=== PATIENT | female | born 1960 | race Caucasian/White ===

== ENCOUNTER 2023-03-27 09:07 | Outpatient (AMB) | payer OTHER, SELFPAY ==
--- NOTE | 2023-03-27 09:05 | AM.OFFWIN_ITS ---
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 She denies current runny nose, sore throat, cough, nausea vomiting or diarrhea, chest pain or shortness of breath, headache or dizziness, discharge from the ears, decreased hearing, or other significant associated symptoms. She did not test for COVID yet [facility] Social History Patient Tobacco Use Status: Current everyday Tobacco user (E CIGARETTE) Review of Systems Const All systems reviewed & are unremarkable except as noted in HPI and below Physical Exam Vital Signs: Last Vital Signs Temp 97.8 F 03/27/23 09:10 Pulse 61 03/27/23 09:10 BP 150/80 H 03/27/23 09:10 Pulse Ox 98 03/27/23 09:10 Const General: cooperative, healthy appearing, comfortable, no acute distress, alert, awake, Physically active and well groomed; No anxious, diaphoretic, ill appearing, intoxicated appearing, poor hygiene or tired appearing Nutritional Appearance: average body habitus Orientation/consciousness: oriented to person Limitations: no limitations HEENT Head: Yes normal to inspection, Yes normocephalic and Yes atraumatic Ears: hearing grossly normal bilaterally, external ears normal, EAC's normal and TM abnormal bulging, dull, wth effusion, erythematous and with fluid behind the TM; not perforated General nose exam: Normal external nose present, Normal nares present, No nasal polyps present, Normal nasal mucous membranes and turbinates present, Normal septum present and No nasal discharge present Face and sinus: Yes normal facial exam, Yes sinuses nontender and Yes face symmetric Mouth: Normal oral and palatal mucosa present, lip normal and tongue normal Throat: Yes posterior oropharynx normal, No peritonsillar mass, No postnasal drainage, No uvular edema and No cobblestoning Eyes General: appearance normal, both eyes and all related structures Neck Neck: Yes normal visual inspection and Yes lymphadenopathy (Mild submandibular lymphadenopathy) Resp Effort & Inspection: normal respiratory effort Cardio Rate: regular rate Rhythm: regular rhythm Skin Other: Good color, warm and dry Neuro General: oriented to person Psych Appearance: grossly normal Mental Status: mental status grossly normal Speech and movement: Normal speech and movement present Affect: normal affect Attitude: cooperative Thought process: Normal thought process present Insight: Good insight present (Psych) Judgement: Good judgement present (Psych) Assessment & Plan Assessment & Plan (1) Otitis media: Code(s): H66.90 - Otitis media, unspecified, unspecified ear Qualifiers: Chronicity: acute Laterality: bilateral Plan: Patient looks to have bilateral otitis media, with erythema and injection to the TMs. We discussed how she likely had fluid in the ears for some time, and she can consider fluticasone to help with the drainage, possibly due to eustachian tube dysfunction. I also wrote her for a course of Augmentin. Pending rapid COVID testing results. She can follow up if symptoms persist or worsen Orders: Orders BinaxMOSHEW Covid-19 03/27/23 Z20.822 - Contact with and (suspected) exposure to COVID-19 Medications: New fluticasone propionate 50 mcg/actuation administer into each nostril 1 spray intranasal DAILY 16 grams 0RF amoxicillin-pot clavulanate 875-125 mg 1 tab PO BID 14 tabs 0RF 7 days Coding Level of Care Code Est Pt Level 4 (77684) Diagnoses Otitis media H66.90 Chronicity: acute Laterality: bilateral
[2023-03-27 09:10] VITALS: BP 150/80; PULSE 61; TEMP 36.6; O2SAT 98
== END 2023-03-27 10:03 | disposition home or self-care (01) ==
PROVIDERS: Visit Provider Physician Assistant Medical
DX: H66.90 Otitis media, unspecified, unspecified ear (principal)
CPT/HCPCS: 99051; 99214

== ENCOUNTER 2023-03-27 09:39 | Outpatient (REF) | payer OTHER, SELFPAY ==
[2023-03-27 10:10] LABS: Binax Internal Control QC Valid; Binax Now Covid-19 Ag Negative (Negative); Binax Performed by: HO.BONILM
== END 2023-03-27 09:40 | disposition home or self-care (01) ==
LOC: HO.HMGCLDS 09:39
PROVIDERS: PCP Internal Medicine; Visit Provider Physician Assistant Medical
DX: Z20.822 Contact with and (suspected) exposure to COVID-19 (principal)
CPT/HCPCS: 87811; C9803

== ENCOUNTER 2024-09-02 12:07 | Outpatient (REF) | payer OTHER, SELFPAY ==
[2024-09-02 14:00] LABS: Anion Gap 8 (12-20); Carbon Dioxide 28 mmol/L (22-29); Chloride 103 mmol/L (96-108); Potassium 3.4 mmol/L (3.3-5.1); Sodium 136 mmol/L (135-145)
== END 2024-09-02 12:08 | disposition home or self-care (01) ==
LOC: HO.HMGCLDS 12:07
PROVIDERS: PCP Internal Medicine; Visit Provider Internal Medicine
DX: E87.1 Hypo-osmolality and hyponatremia (principal)
CPT/HCPCS: 36415; 80051

== ENCOUNTER 2025-03-02 11:30 | Outpatient (AMB) | payer OTHER, SELFPAY ==
--- NOTE | 2025-03-02 11:34 | MHC.PC.OV ---
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 Accompanied by: Self / Same As Patient Allergies Sulfa (Sulfonamide Antibiotics) Allergy (Mild, Verified 03/02/25 11:54) Rash Medication List - Last Reconciled 03/02/25 by Blanca Antoine PA-C atenolol 100 mg PO DAILY irbesartan-hydrochlorothiazide 300-12.5 mg 1 tab PO DAILY loratadine (Allergy Relief (loratadine)) 10 mg PO DAILY Tobacco use date assessed: 03/02/25 Fall risk assessment: No Falls in past year Last assessed Fall Risk: 03/02/25 Dental Screening Dental Screen Date: 03/02/25 Did you have a dental visit in the last 12 months?: No Did you have a dental problem in the last 6 months where you did not have access to dental care?: No Was dental information given to patient?: Patient has dentist HPI Establish care; hypertension HPI Details The patient is a 64-year-old female presenting for a new patient appointment and management of hypertension. The patient reports a history of elevated blood pressure readings, particularly during medical appointments, which she attributes to anxiety, commonly referred to as white coat syndrome. She has been on atenolol 100 mg and hydrochlorothiazide 12.5 mg daily, which she took on the day of the visit. Previous attempts to manage her hypertension included adjustments to her medication regimen, which involved removing the diuretic component, but this did not yield satisfactory results. The patient has not completed recommended preventative screenings, including a colon cancer screening with a stool test and a mammogram. She has not undergone a bone density scan, which is typically recommended starting at age 65. Social History - Employment: Works remotely, which impacts her ability to complete certain health screenings. [facility] Medical History Colon cancer screening Encounter for preventive care Dual energy x-ray photon absorptiometry (DEXA) scan declined (~03/02/25) Screening mammography declined (~03/02/25) Allergies Hypertension Class 1 obesity with body mass index (BMI) of 32.0 to 32.9 in adult Establishing care with new doctor, encounter for Family History Father No problems noted. Mother No problems noted. Social History Housing: House Alcohol intake: current Alcohol intake frequency: does not drink Patient Tobacco Use Status: Former Tobacco user (E CIGARETTE) e-Cigarette/Vaping Use: Former Use service: No Current occupational status: employed Cognitive needs: No Hearing needs: No Vision needs: Yes (rx glasses) Questionnaire PHQ-9 Over the last 2 weeks, how often have you been bothered by any of the following problems? 1. Little interest or pleasure in doing things: not at all 2. Feeling down, depressed, or hopeless: not at all 3. Trouble falling or staying asleep, or sleeping too much: not at all 4. Feeling tired or having little energy: not at all 5. Poor appetite or overeating: not at all 6. Feeling bad about yourself - or that you are a failure or have let yourself or your family down: not at all 7. Trouble concentrating on things, such as reading the newspaper or watching television: not at all 8. Moving or speaking so slowly that other people could have noticed. Or the opposite - being so fidgety or restless that you have been moving around a lot more than usual: not at all 9. Thoughts that you would be better off or of hurting yourself in some way: not at all Total score: 0 Depression Screening Interpretation: Negative Depression Screening Done: Yes 96698 - PHQ-9 Billing: Yes Source: Developed by Drs. Gurpreet Mcfarland, Sol Gomez, Ervin Gonzalez and colleagues, with an educational naz from [employer]. Thrive Questionnaire Date Thrive assessed: 03/02/25 I am a: Patient What is your living situation today?: I have a steady place to live Within the past 12 months, did the food you bought not last and you didn't have the money to get more?: Never true Within the past 12 months, did you worry whether your food would run out before you got money to buy more?: Never true Do you have trouble paying for medicines?: No Do you have trouble getting transportation to medical appointments?: No Do you have trouble paying your heating and electricity bill?: No Do you have trouble taking care of your child, family member or friend?: No Do you have trouble with day-to-day activities such as bathing, preparing meals, shopping, managing finances, etc.?: No Are you currently unemployed and looking for a job?: No Are you interested in more education?: No Please select the resources that you would like help with: None Currently or been in a relationship where the following occur: No concerns reported THRIVE Score: 0 AUDIT C Alcohol Use Questionnaire (AUDIT-C) 1. How often do you have a drink containing alcohol?: Never 3. How often do you have six or more drinks on one occasion?: Never Total Score: 0 Score Reviewed/Action Taken: No ARTURO-7 AMB Questionnaire ARTURO-7 Date ARTURO - 7 assessed: 03/02/25 Feeling nervous, anxious, or on edge: 0 = Not at all Not being able to stop or control worryin = Not at all Worrying too much about different things: 0 = Not at all Trouble relaxin = Not at all Being so restless that it is hard to sit still: 0 = Not at all Becoming easily annoyed or irritable: 0 = Not at all Feeling afraid as if something awful might happen: 0 = Not at all Total ARTURO-7 score (0-4 normal; 5-9 mild; 10-14 moderate; 15-21 severe): 0 Source: Developed by Drs. Gurpreet Mcfarland, Sol Gomez, Ervin Gonzalez and colleagues, with an educational naz from [employer]. ARTURO-7 Assessment Billing ARTURO-7 Assessment Tool: ARTURO-7 Assessment 19080 Review of Systems Const Details: - Cardiovascular: Reports elevated blood pressure readings during medical appointments. Denies chest pain or palpitations. - Gastrointestinal: Denies abdominal pain or changes in bowel habits. - Musculoskeletal: Denies leg swelling or pain. All systems reviewed & are unremarkable except as noted in HPI and below Physical exam (Primary Care) Vital Signs: Last Vital Signs Temp 98.1 F 03/02/25 11:42 Pulse 57 03/02/25 11:42 Resp 16 03/02/25 11:42 BP 178/82 H 03/02/25 11:42 Pulse Ox 98 03/02/25 11:42 Oxygen Delivery Method Room Air 03/02/25 11:42 Care Plan Goal for BP management: <140/90 patient to keep blood pressure log at home and return in 2 weeks with blood pressure machine and blood pressure log BMI result Body Mass Index 32.2 BMI Assessment/Plan discussion: High BMI High, discussed plan: lifestyle, weight reduction, dietary, physical activity and alcohol moderation Tobacco/Smoking Status: Tobacco use Status Tobacco use date assessed 03/02/25 03/02/25 11:41 Patient Tobacco Use Status Current everyday Tobacco (E 03/02/25 11:41 CIGARETTE) PHQ-9: PHQ-9 Score PHQ-9: Total score 0 03/02/25 11:41 Depression Screening Interpretation: Negative Thrive Assessment: Date of Thrive Assessment Date Thrive assessed 03/02/25 03/02/25 11:41 Currently or been in a relationship where the following occur: No concerns reported Const Other: Appearance: Anxious, very anxious. Oriented X3. No acute distress. Head: Normal external exam. Normocephalic. Atraumatic. Eyes: Pupils are equal, round, and reactive to light. Extraocular movements intact. Conjunctiva and sclera normal. Eyelids normal. Ears: External auditory canal normal. Tympanic membranes normal. A little bit of wax noted, but no fluid. Throat: Pharynx normal. Uvula midline. Moist mucous membranes. Neck: Normal inspection. Neck supple. Full range of motion. Cardiovascular: Normal heart rate and rhythm. Heart sound normal. No murmurs noted. Pulses normal throughout. Respiratory: No respiratory distress. Painless inspiration. Breath sounds normal. No wheezes/rales/rhonchi noted. Chest nontender. No accessory muscle usage noted or decreased air movement noted. Abdomen: Soft and nontender. No distention noted. No organomegaly noted. Back: No costovertebral angle tenderness. Full range of motion noted. Skin: Skin warm and dry. Normal skin color. Normal skin turgor. No rashes/lesions/lacerations noted. Extremities: No lower extremity edema. Extremities exhibit normal range of motion. Extremities nontender. Neuro: Oriented X 3. No motor deficit. No sensory deficit. Reflexes normal. Results Reviewed Results Reviewed: - Labs: Previous blood work in August showed normal kidney function, sodium, and potassium levels. Coding Level of Care Code New Pt Level 5 (07267) Complex EM visit Add On G2211 Diagnoses Establishing care with new doctor, encounter for Z76.89 Class 1 obesity with body mass index (BMI) of 32.0 to 32.9 in adult E66.811; Z68.32 Hypertension I10 Allergies T78.40XA Screening mammography declined Z53.20 Encounter for preventive care Z00.00 Colon cancer screening Z12.11 Additional Codes PHQ-9 - 86362 - PHQ-9 Billing: Yes ([id number]) ARTURO-7 Assessment Billing - ARTURO-7 Assessment Tool: ARTURO-7 Assessment 74222 ([id number]) Assessment & Plan Assessment & Plan (1) Establishing care with new doctor, encounter for: Code(s): Z76.89 - Persons encountering health services in other specified circumstances Category: Medical (2) Class 1 obesity with body mass index (BMI) of 32.0 to 32.9 in adult: Code(s): E66.811 - Obesity, class 1; Z68.32 - Body mass index [BMI] 32.0-32.9, adult Category: Medical Plan: Patient to improve diet and exercise regimen. Condition is chronic and stable will continue to monitor. (3) Hypertension: Code(s): I10 - Essential (primary) hypertension Category: Medical Plan: The patient will monitor her blood pressure at home for two weeks, recording daily readings to assess the need for medication adjustments. She is advised to bring her blood pressure machine to the next appointment to ensure its accuracy. Lifestyle modifications, including stress reduction techniques, are recommended to help manage her blood pressure. (4) Allergies: Code(s): T78.40XA - Allergy, unspecified, initial encounter Category: Medical Plan: Patient to continue loratadine. Condition is chronic and stable continue to monitor. (5) Screening mammography declined: Onset Date: ~03/02/25 Code(s): Z53.20 - Procedure and treatment not carried out because of patient's decision for unspecified reasons Category: Medical Plan: Patient educated on mammogram screening for breast cancer although patient declined at this time. (6) Encounter for preventive care: Code(s): Z00.00 - Encounter for general adult medical examination without abnormal findings Category: Medical Plan: The patient is advised to complete a colon cancer screening with a stool test and a mammogram. A bone density scan is recommended, given her age, to assess for osteoporosis risk. Although patient declined mammogram and bone density test. (7) Colon cancer screening: Code(s): Z12.11 - Encounter for screening for malignant neoplasm of colon Category: Medical Plan: Cologuard ordered at this time. Plan Plan Patient was informed and verbally consented to the use of an ambient scribe for clinic note documentation during this visit. 1. Essential Hypertension The patient will monitor her blood pressure at home for two weeks, recording daily readings to assess the need for medication adjustments. She is advised to bring her blood pressure machine to the next appointment to ensure its accuracy. Lifestyle modifications, including stress reduction techniques, are recommended to help manage her blood pressure. 2. Preventative Care The patient is advised to complete a colon cancer screening with a stool test and a mammogram. A bone density scan is recommended, given her age, to assess for osteoporosis risk. I discussed with the patient the importance of monitoring her blood pressure at home to determine if her current medication regimen is effective. We talked about the potential need for medication adjustments based on her home readings. I also emphasized the importance of completing her preventative screenings, including a colon cancer screening and a mammogram, to ensure early detection of any potential issues. We discussed the option of a bone density scan to assess her risk for osteoporosis, given her age. I encouraged her to engage in stress-reducing activities to help manage her blood pressure. Orders: Orders Lipid Panel Today Z00.00 - Encounter for general adult medical examination without abnormal findings Liver Panel Today Z00.00 - Encounter for general adult medical examination without abnormal findings TSH reflex Free T4 Today Z00.00 - Encounter for general adult medical examination without abnormal findings Vitamin D 25-OH Total Today Z00.00 - Encounter for general adult medical examination without abnormal findings C Reactive Protein Today Z00.00 - Encounter for general adult medical examination without abnormal findings Complete Blood Count Auto Diff Today Z00.00 - Encounter for general adult medical examination without abnormal findings Comprehensive [place]. Panel Fast Today Z00.00 - Encounter for general adult medical examination without abnormal findings Hemoglobin A1c Today Z00.00 - Encounter for general adult medical examination without abnormal findings Magnesium Today Z00.00 - Encounter for general adult medical examination without abnormal findings Vitamin B12 and Folate Today Z00.00 - Encounter for general adult medical examination without abnormal findings Referrals Cologuard Test Z12.11 - Encounter for screening for malignant neoplasm of colon Patient Instructions: - Monitor your blood pressure at home daily for two weeks and record the readings. - Bring your blood pressure machine to your next appointment. - Complete the colon cancer screening with the stool test and schedule a mammogram. - Consider scheduling a bone density scan to assess for osteoporosis risk. - Engage in stress-reducing activities to help manage your blood pressure.
[2025-03-02 11:42] VITALS: BP 178/82; PULSE 57; RESP 16; TEMP 36.7; O2SAT 98; BMI 32.2
--- OUTSIDE RECORDS SUMMARY | 2025-03-02 11:54 | XMS_ITS | Clinical Summary ---
Author Organization [facility] ity Address [address] [place] [address] Care Team Providers Care Manager Architecture Name Role Phone Unavailable Primary Care Provider Unavailabl e Social History Tobacco Use Types Packs/Day Years Used Date Smoking Tobacco: Never Assessed Comments Unknown Sex and Gender Information Value Date Recorded Sex Assigned at Not on file Legal Sex Female 10:17 AM EST Gender Identity Not on file Sexual Orientation Not on file Plan of Treatment Health Maintenance Due Date Last Done Comments Breast Cancer Screening 1960 DTaP,Tdap,and Td Vaccines (1 - Tdap) 11/16/1979 Cervical Cancer Screening: P ap Smear 1981 Pneumococcal Vaccine: 50+ Ye ars (1 of 1 - PCV) 2010 Zoster Vaccines (1 of 2) 2010 COVID-19 Vaccine ( - 2023-2 5 season) 2024 Influenza Vaccine (#1) 2025 RSV Immunization Adult Patie nts (1 - 1-dose 75+ series) 11/16/2035 HIB Vaccines Aged Out No longer eligi ble based on patient's age to complete this topic HPV Vaccines Aged Out No longer eligi ble based on patient's age to complete this topic Hepatitis A Vaccines Aged Out No long er eligible based on patient's age to complete this topic Hepatitis B Vaccines Aged Out No long er eligible based on patient's age to complete this topic IPV Vaccines Aged Out No longer eligi ble based on patient's age to complete this topic MMR Vaccines Aged Out No longer eligi ble based on patient's age to complete this topic Meningococcal ACWY Vaccine Aged Out N o longer eligible based on patient's age to complete this topic Meningococcal B Vaccine Aged Out No l onger eligible based on patient's age to complete this topic RSV Immunization Patients Un magui 20 months Aged Out No longer eligible b ased on patient's age to complete this topic Varicella Vaccines Aged Out No longer eligible based on patient's age to complete this topic
[2025-03-02 12:19] VITALS: BP 166/80
== END 2025-03-02 12:21 | disposition home or self-care (01) ==
LOC: HO.HMCSH 11:30
PROVIDERS: PCP Internal Medicine; Visit Provider Physician Assistant Medical
DX: Z00.00 Encounter for general adult medical examination without abnormal findings (principal); E66.811 Obesity, class 1; Z68.32 Body mass index [BMI] 32.0-32.9, adult; I10 Essential (primary) hypertension; T78.40XA Allergy, unspecified, initial encounter; Z53.20 Procedure and treatment not carried out because of patient's decision for unspecified reasons; Z12.11 Encounter for screening for malignant neoplasm of colon

== ENCOUNTER → 2025-03-02 11:30 | Outpatient (BNVA) | payer OTHER, SELFPAY | PROVIDERS: PCP Internal Medicine; Visit Provider Physician Assistant Medical | DX: Z76.89 Persons encountering health services in other specified circumstances (principal); E66.811 Obesity, class 1; Z68.32 Body mass index [BMI] 32.0-32.9, adult; I10 Essential (primary) hypertension; T78.40XA Allergy, unspecified, initial encounter; Z13.31 Encounter for screening for depression; Z13.39 Encounter for screening examination for other mental health and behavioral disorders | CPT/HCPCS: 96127 ==

== ENCOUNTER 2025-03-15 11:32 | Outpatient (AMB) | payer OTHER, SELFPAY ==
[2025-03-15 11:30] VITALS: BP 137/91; PULSE 62; RESP 14; TEMP 36.9; O2SAT 96; BMI 32.6
--- NOTE | 2025-03-15 11:30 | A.OFFPC_ITS ---
Vital Signs 03/15/25 11:30 Height 5 ft 1.3 in Weight 174 lb BMI 32.6 BP 137/91 H Respiration 14 Pulse 62 Pulse Source Pulse Oximeter Temp 98.4 F Temp Source Temporal Artery Scan Pulse Oximetry (%) 96 Oxygen Delivery Method Room Air Intake Visit Reasons: 2 week f/u Waiter Waitress Required: No Accompanied by: Self / Same As Patient Allergies Sulfa (Sulfonamide Antibiotics) Allergy (Mild, Verified 03/15/25 14:18) Rash Medication List - Last Reconciled 03/15/25 by Blanca Antoine PA-C atenolol 100 mg PO DAILY hydrochlorothiazide 12.5 mg PO DAILY irbesartan-hydrochlorothiazide 300-12.5 mg 1 tab PO DAILY loratadine (Allergy Relief (loratadine)) 10 mg PO DAILY Tobacco use date assessed: 03/15/25 Dental Screening Dental Screen Date: 03/02/25 HPI 2 week f/u HPI Details The patient is a 64-year-old female presenting for a blood pressure follow-up. She has been on atenolol, irbesartan, and hydrochlorothiazide for hypertension management. Her blood pressure readings have been variable, with higher readings noted during work-related stress and lower readings during weekends. The patient reports a history of medication-induced edema, previously experienced with amlodipine, leading to its discontinuation. She has been advised to monitor her sodium intake and has experienced elevated sodium levels in the past, particularly during the summer months. Social History - Employment: Patient experiences work-r elated stress impacting blood pressure readings. [facility] Medical History General medical exam Cervical lymphadenopathy Chronic sinusitis Thyroid nodule History of obstetric problem Colon cancer screening Encounter for preventive care Dual energy x-ray photon absorptiometry (DEXA) scan declined (~03/02/25) Screening mammography declined (~03/02/25) Allergies Hypertension Class 1 obesity with body mass index (BMI) of 32.0 to 32.9 in adult Establishing care with new doctor, encounter for Surgical History H/O tubal ligation S/P thyroid biopsy Family History Father No problems noted. Mother No problems noted. Social History Housing: House Alcohol intake: current Alcohol intake frequency: does not drink Patient Tobacco Use Status: Former Tobacco user e-Cigarette/Vaping Use: Former Use service: No Current occupational status: employed Cognitive needs: No Hearing needs: No Vision needs: Yes (rx glasses) Questionnaire PHQ-9 Over the last 2 weeks, how often have you been bothered by any of the following problems? 1. Little interest or pleasure in doing things: not at all 2. Feeling down, depressed, or hopeless: not at all 3. Trouble falling or staying asleep, or sleeping too much: not at all 4. Feeling tired or having little energy: not at all 5. Poor appetite or overeating: not at all 6. Feeling bad about yourself - or that you are a failure or have let yourself or your family down: not at all 7. Trouble concentrating on things, such as reading the newspaper or watching television: not at all 8. Moving or speaking so slowly that other people could have noticed. Or the opposite - being so fidgety or restless that you have been moving around a lot more than usual: not at all 9. Thoughts that you would be better off or of hurting yourself in some way: not at all Total score: 0 Depression Screening Interpretation: Negative Depression Screening Done: Yes 00404 - PHQ-9 Billing: Yes Source: Developed by Drs. Gurpreet Mcfarland, Sol Gomez, Ervin Gonzalez and colleagues, with an educational naz from [employer]. Thrive Questionnaire Date Thrive assessed: 03/02/25 I am a: Patient What is your living situation today?: I have a steady place to live Within the past 12 months, did the food you bought not last and you didn't have the money to get more?: Never true Within the past 12 months, did you worry whether your food would run out before you got money to buy more?: Never true Do you have trouble paying for medicines?: No Do you have trouble getting transportation to medical appointments?: No Do you have trouble paying your heating and electricity bill?: No Do you have trouble taking care of your child, family member or friend?: No Do you have trouble with day-to-day activities such as bathing, preparing meals, shopping, managing finances, etc.?: No Are you currently unemployed and looking for a job?: No Are you interested in more education?: No Please select the resources that you would like help with: None Currently or been in a relationship where the following occur: No concerns reported THRIVE Score: 0 AUDIT C Alcohol Use Questionnaire (AUDIT-C) 1. How often do you have a drink containing alcohol?: Never 3. How often do you have six or more drinks on one occasion?: Never Total Score: 0 Score Reviewed/Action Taken: No ARTURO-7 AMB Questionnaire ARTURO-7 Date ARTURO - 7 assessed: 03/02/25 Feeling nervous, anxious, or on edge: 0 = Not at all Not being able to stop or control worryin = Not at all Worrying too much about different things: 0 = Not at all Trouble relaxin = Not at all Being so restless that it is hard to sit still: 0 = Not at all Becoming easily annoyed or irritable: 0 = Not at all Feeling afraid as if something awful might happen: 0 = Not at all Total ARTURO-7 score (0-4 normal; 5-9 mild; 10-14 moderate; 15-21 severe): 0 Source: Developed by Drs. Gurpreet Mcfarland, Sol Gomez, Ervin Gonzalez and colleagues, with an educational naz from [employer]. ARTURO-7 Assessment Billing ARTURO-7 Assessment Tool: ARTURO-7 Assessment 60646 Review of Systems Const Details: - Cardiovascular: Reports elevated blood pressure readings, especially during work. Denies chest pain or palpitations. - General: Reports medication-induced edema in the past with amlodipine. All systems reviewed & are unremarkable except as noted in HPI and below Physical exam (Primary Care) Vital Signs: Last Vital Signs Temp 98.4 F 03/15/25 11:30 Pulse 62 03/15/25 11:30 Resp 14 03/15/25 11:30 BP 137/91 H 03/15/25 11:30 Pulse Ox 96 03/15/25 11:30 Oxygen Delivery Method Room Air 03/15/25 11:30 Care Plan Goal for BP management: <140/90 will add an additional 12.5 mg hydrochlorothiazide to the patient's irbesartan-hydrochlorothiazide 300-12.5 mg and atenolol 100 mg daily. Patient will return in a month for blood pressure check BMI result Body Mass Index 32.6 BMI Assessment/Plan discussion: High BMI High, discussed plan: lifestyle, weight reduction, dietary, physical activity and alcohol moderation Tobacco/Smoking Status: Tobacco use Status Tobacco use date assessed 03/15/25 03/15/25 11:42 Patient Tobacco Use Status Former Tobacco user (E 03/15/25 11:42 CIGARETTE) e-Cigarette/Vaping Use Former Use 03/15/25 11:42 PHQ-9: PHQ-9 Score PHQ-9: Total score 0 03/15/25 11:42 Depression Screening Interpretation: Negative Thrive Assessment: Date of Thrive Assessment Date Thrive assessed 03/02/25 03/15/25 11:42 Currently or been in a relationship where the following occur: No concerns reported Const Other: Appearance: Alert. Oriented X3. No acute distress. Head: Normal external exam. Normocephalic. Atraumatic. Eyes: Pupils are equal, round, and reactive to light. Extraocular movements intact. Conjunctiva and sclera normal. Eyelids normal. Throat: Pharynx normal. Uvula midline. Moist mucous membranes. Neck: Normal inspection. Neck supple. Full range of motion. Cardiovascular: Normal heart rate and rhythm. Heart sound normal. No murmurs noted. Pulses normal throughout. Respiratory: No respiratory distress. Painless inspiration. Breath sounds normal. No wheezes/rales/rhonchi noted. Chest nontender. No accessory muscle usage noted or decreased air movement noted. Back: Full range of motion noted. Skin: Skin warm and dry. Normal skin color. Normal skin turgor. No rashes/lesions/lacerations noted. Extremities: No lower extremity edema. Extremities exhibit normal range of motion. Neuro: Oriented X 3. No motor deficit. No sensory deficit. Reflexes normal. Coding Level of Care Code Est Pt Level 4 (64393) Complex EM visit Add On G2211 Diagnoses Hypertension I10 Additional Codes ARTURO-7 Assessment Billing - ARTURO-7 Assessment Tool: ARTURO-7 Assessment 20857 ([id number]) PHQ-9 - 30217 - PHQ-9 Billing: Yes ([id number]) Assessment & Plan Assessment & Plan (1) Hypertension: Code(s): I10 - Essential (primary) hypertension Category: Medical Plan: The patient's blood pressure management includes atenolol, irbesartan, and hydrochlorothiazide. Blood pressure readings have been variable, with higher readings during work-related stress. The plan includes the current combination medication to allow for an increased dose of hydrochlorothiazide to 25 mg, with follow-up blood work to monitor sodium and potassium levels. Plan Plan Patient was informed and verbally consented to the use of an ambient scribe for clinic note documentation during this visit. 1. Essential Hypertension The patient's blood pressure management includes atenolol, irbesartan, and hydrochlorothiazide. Blood pressure readings have been variable, with higher readings during work-related stress. The plan includes the current combination medication to allow for an increased dose of hydrochlorothiazide to 25 mg, with follow-up blood work to monitor sodium and potassium levels. 2. Medication-Induced Edema The patient previously experienced edema with amlodipine, leading to its discontinuation. The plan is to avoid amlodipine and monitor for edema with any new medications. During the visit, we discussed the patient's blood pressure management, including the variability in readings and the potential impact of work-related stress. We considered increasing the dose of hydrochlorothiazide to better control blood pressure and planned for follow-up blood work to monitor electrolyte levels. We also reviewed the patient's history of edema with amlodipine and decided to avoid this medication in the future. Orders: Orders Basic Metabolic Panel 1 Week Z00.00 - Encounter for general adult medical exami [facility] without abnormal findings Medications: New hydrochlorothiazide 12.5 mg PO DAILY 90 tabs 3RF hydrochlorothiazide 12.5 mg PO DAILY 90 tabs 3RF Refilled irbesartan-hydrochlorothiazide 300-12.5 mg 1 tab PO DAILY 90 tabs 1RF Discontinued irbesartan-hydrochlorothiazide 300-12.5 mg Discontinued Reason: Doctor's Order 1 tab PO DAILY 90 tabs 1RF Patient Instructions: - Continue current medications: atenolol, irbesartan, and hydrochlorothiazide. - Monitor blood pressure at home, especially during work and weekends. - Follow a balanced diet, being mindful of sodium intake. - Schedule follow-up blood work in one to two weeks to check sodium and potassium levels. - Avoid amlodipine due to previous edema.
--- OUTSIDE RECORDS SUMMARY | 2025-03-15 12:16 | XMS_ITS | Clinical Summary ---
Author Organization [facility] ity Address [address] [place] [address] Care Team Providers Care Battery Tester And Repairer Name Role Phone Unavailable Primary Care Provider [...] Vaccine ( - 2023-2 5 season) 2024 Depression Screening 08/16/2024 Influenza Vaccine (#1) 2025 RSV Immunization Adult [...]
== END 2025-03-15 12:25 | disposition home or self-care (01) ==
LOC: HO.HMCSH 11:32
PROVIDERS: PCP Internal Medicine; Visit Provider Physician Assistant Medical
DX: I10 Essential (primary) hypertension (principal)

== ENCOUNTER → 2025-03-15 11:32 | Outpatient (BNVA) | payer OTHER, SELFPAY | PROVIDERS: PCP Internal Medicine; Visit Provider Physician Assistant Medical | DX: I10 Essential (primary) hypertension (principal); R60.9 Edema, unspecified | CPT/HCPCS: 96127 ==

== ENCOUNTER 2025-03-24 11:02 | Outpatient (REF) | payer OTHER, SELFPAY ==
--- OUTSIDE RECORDS SUMMARY | 2025-03-24 11:05 | XMS_ITS | Clinical Summary ---
Author Organization [facility] ity Address [address] [place] [address] Care Team Providers Care Pool Table Operator Name Role Phone Unavailable Primary Care Provider [...] 2023-2 5 season) 2024 Depression Screening 08/16/2024 Cholesterol Screening (Lipid Panel) 03/15/2025 Colorectal Cancer Screening: Colonoscopy 03/15/2025 HIV Screening 03/15/2025 Hepatitis C Screening 03/15/2025 Social Influencers of Health Screening 03/15/2025 Influenza Vaccine (#1) 2025 RSV Immunization Adult [...]
[2025-03-24 14:22] LABS: Anion Gap 13 (12-20); Blood Urea Nitrogen 12 mg/dL (9-16); Calcium 9.1 mg/dL (8.4-10.2); Carbon Dioxide 27 mmol/L (22-29); Chloride 97 mmol/L (96-108); Estimated Glomerular Filt Rate > 60; Potassium 3.6 mmol/L (3.3-5.1); Sodium 133 mmol/L (135-145)
== END 2025-03-24 11:03 | disposition home or self-care (01) ==
LOC: HO.HMGCLDS 11:02
PROVIDERS: PCP Physician Assistant Medical; Visit Provider Physician Assistant Medical
DX: Z00.00 Encounter for general adult medical examination without abnormal findings (principal)
CPT/HCPCS: 36415; 80048

== ENCOUNTER 2025-04-07 11:28 | Outpatient (REF) | payer OTHER, SELFPAY ==
[2025-04-07 14:09] LABS: Anion Gap 11 (12-20); Blood Urea Nitrogen 14 mg/dL (9-16); Calcium 9.0 mg/dL (8.4-10.2); Carbon Dioxide 26 mmol/L (22-29); Chloride 101 mmol/L (96-108); Estimated Glomerular Filt Rate > 60; Potassium 3.4 mmol/L (3.3-5.1); Sodium 135 mmol/L (135-145)
== END 2025-04-07 11:29 | disposition home or self-care (01) ==
LOC: HO.HMGCLDS 11:28
PROVIDERS: PCP Physician Assistant Medical; Visit Provider Physician Assistant Medical
DX: E87.1 Hypo-osmolality and hyponatremia (principal)
CPT/HCPCS: 36415; 80048

== ENCOUNTER 2025-04-13 10:37 | Outpatient (AMB) | payer OTHER, SELFPAY ==
--- NOTE | 2025-04-13 10:47 | A.OFFPC_ITS ---
Intake Visit Reasons: 1 month follow up Accompanied by: Self / Same As Patient Allergies Sulfa (Sulfonamide Antibiotics) Allergy (Mild, Verified 04/13/25 11:06) Rash Medication List - Last Reconciled 04/13/25 by Blanca Antoine PA-C atenolol 100 mg PO DAILY hydrochlorothiazide 12.5 mg PO DAILY irbesartan-hydrochlorothiazide 300-12.5 mg 1 tab PO DAILY loratadine (Allergy Relief (loratadine)) 10 mg PO DAILY Tobacco use date assessed: 03/15/25 Dental Screening Dental Screen Date: 03/02/25 HPI 1 month follow up HPI Details The patient is a 64-year-old female presenting with a follow-up for previously identified hyponatremia and management of essential hypertension. Hyponatremia was initially identified in March with a sodium level of 133 mmol/L. The patient increased her water intake, which she believes contributed to the low sodium levels. Upon re-evaluation on April 07, the sodium level normalized to 135 mmol/L. Essential hypertension is being managed with hydrochlorothiazide 12.5 mg. The patient reported occasional missed doses but noted improved blood pressure readings when medication was taken consistently. The pharmacy encountered issues with prescription adjustments, leading to confusion about the dosage. [facility] Medical History Hyponatremia General medical exam Cervical lymphadenopathy Chronic sinusitis Thyroid nodule History of obstetric problem Colon cancer screening Encounter for preventive care Dual energy x-ray photon absorptiometry (DEXA) scan declined (~03/02/25) Screening mammography declined (~03/02/25) Allergies Hypertension Class 1 obesity with body mass index (BMI) of 32.0 to 32.9 in adult Establishing care with new doctor, encounter for Surgical History H/O tubal ligation S/P thyroid biopsy Family History Father No problems noted. Mother No problems noted. Social History Housing: House Alcohol intake: current Alcohol intake frequency: does not drink Patient Tobacco Use Status: Former Tobacco user e-Cigarette/Vaping Use: Former Use service: No Current occupational status: employed Cognitive needs: No Hearing needs: No Vision needs: Yes (rx glasses) Questionnaire PHQ-9 Over the last 2 weeks, how often have you been bothered by any of the following problems? 1. Little interest or pleasure in doing things: not at all 2. Feeling down, depressed, or hopeless: not at all 3. Trouble falling or staying asleep, or sleeping too much: not at all 4. Feeling tired or having little energy: not at all 5. Poor appetite or overeating: not at all 6. Feeling bad about yourself - or that you are a failure or have let yourself or your family down: not at all 7. Trouble concentrating on things, such as reading the newspaper or watching television: not at all 8. Moving or speaking so slowly that other people could have noticed. Or the opposite - being so fidgety or restless that you have been moving around a lot more than usual: not at all 9. Thoughts that you would be better off or of hurting yourself in some way: not at all Total score: 0 Depression Screening Interpretation: Negative Depression Screening Done: Yes 56435 - PHQ-9 Billing: Yes Source: Developed by Drs. Gurpreet Mcfarland, Sol Gomez, Ervin Gonzalez and colleagues, with an educational naz from [employer]. Thrive Questionnaire Date Thrive assessed: 03/02/25 I am a: Patient What is your living situation today?: I have a steady place to live Within the past 12 months, did the food you bought not last and you didn't have the money to get more?: Never true Within the past 12 months, did you worry whether your food would run out before you got money to buy more?: Never true Do you have trouble paying for medicines?: No Do you have trouble getting transportation to medical appointments?: No Do you have trouble paying your heating and electricity bill?: No Do you have trouble taking care of your child, family member or friend?: No Do you have trouble with day-to-day activities such as bathing, preparing meals, shopping, managing finances, etc.?: No Are you currently unemployed and looking for a job?: No Are you interested in more education?: No Please select the resources that you would like help with: None Currently or been in a relationship where the following occur: No concerns reported THRIVE Score: 0 AUDIT C Alcohol Use Questionnaire (AUDIT-C) 1. How often do you have a drink containing alcohol?: Never 3. How often do you have six or more drinks on one occasion?: Never Total Score: 0 Score Reviewed/Action Taken: No ARTURO-7 AMB Questionnaire ARTURO-7 Date ARTURO - 7 assessed: 03/02/25 Feeling nervous, anxious, or on edge: 0 = Not at all Not being able to stop or control worryin = Not at all Worrying too much about different things: 0 = Not at all Trouble relaxin = Not at all Being so restless that it is hard to sit still: 0 = Not at all Becoming easily annoyed or irritable: 0 = Not at all Feeling afraid as if something awful might happen: 0 = Not at all Total ARTURO-7 score (0-4 normal; 5-9 mild; 10-14 moderate; 15-21 severe): 0 Source: Developed by Drs. Gurpreet Mcfarland, Sol Gomez, Ervin Gonzalez and colleagues, with an educational naz from [employer]. ARTURO-7 Assessment Billing ARTURO-7 Assessment Tool: ARTURO-7 Assessment 76196 Physical exam (Primary Care) Tobacco/Smoking Status: Tobacco use Status Tobacco use date assessed 03/15/25 04/13/25 10:49 Patient Tobacco Use Status Former Tobacco user 04/13/25 10:49 e-Cigarette/Vaping Use Former Use 04/13/25 10:49 PHQ-9: PHQ-9 Score PHQ-9: Total score 0 04/13/25 10:49 Depression Screening Interpretation: Negative Thrive Assessment: Date of Thrive Assessment Date Thrive assessed 03/02/25 04/13/25 10:49 Currently or been in a relationship where the following occur: No concerns reported Telehealth Telehealth Telehealth Platform: Telephone Location of provider rendering services: practice address Location of patient: address on file Patient Identification confirmed using: Name, : Yes Telehealth method: voice only Patient verbally consented to treatment: Yes Patient verbally consented to billing insurance company: Yes Patient informed of any privacy concerns related to visit: Yes Minutes spent on Phone/Video with Pt.: 15 Coding Level of Care Code Tele Est Pt Level 4 (10626) Complex EM visit Add On G2211 Diagnoses Hyponatremia E87.1 Hypertension I10 Additional Codes ARTURO-7 Assessment Billing - ARTURO-7 Assessment Tool: ARTURO-7 Assessment 44707 ([id number]) PHQ-9 - 05440 - PHQ-9 Billing: Yes ([id number]) Assessment & Plan Assessment & Plan (1) Hyponatremia: Code(s): E87.1 - Hypo-osmolality and hyponatremia Category: Medical Plan: The patient's sodium levels have normalized after reducing excessive water intake. No further intervention is required at this time, but monitoring will continue. (2) Hypertension: Code(s): I10 - Essential (primary) hypertension Category: Medical Plan: The patient is advised to continue hydrochlorothiazide 12.5 mg daily. She should monitor her blood pressure regularly and report if readings exceed 140/90 mmHg. A follow-up appointment is suggested in six months to reassess blood pressure management. Plan Plan Patient was informed and verbally consented to the use of an ambient scribe for clinic note documentation during this visit. 1. Hyponatremia The patient's sodium levels have normalized after reducing excessive water intake. No further intervention is required at this time, but monitoring will continue. 2. Essential Hypertension The patient is advised to continue hydrochlorothiazide 12.5 mg daily. She should monitor her blood pressure regularly and report if readings exceed 140/90 mmHg. A follow-up appointment is suggested in six months to reassess blood pressure management. During the visit, I discussed with the patient the normalization of her sodium levels and the importance of maintaining a balanced water intake. We also reviewed her hypertension management, emphasizing adherence to hydrochlorothiazide and regular blood pressure monitoring. A follow-up in six months was recommended to evaluate her blood pressure control. Patient Instructions: - Continue taking hydrochlorothiazide 12.5 mg daily. - Monitor blood pressure regularly and report if it exceeds 140/90 mmHg. - Maintain a balanced water intake to prevent hyponatremia. - Schedule a follow-up appointment in six months.
--- OUTSIDE RECORDS SUMMARY | 2025-04-13 11:14 | XMS_ITS | Clinical Summary ---
Author Organization [facility] ity Address [address] [place] [address] Care Team Providers Care Cotton Broker Name Role Phone Unavailable Primary Care Provider [...]
== END 2025-04-13 14:54 | disposition home or self-care (01) ==
LOC: HO.HMCSH 10:37
PROVIDERS: PCP Physician Assistant Medical; Visit Provider Physician Assistant Medical
DX: E87.1 Hypo-osmolality and hyponatremia (principal); I10 Essential (primary) hypertension

== ENCOUNTER → 2025-04-13 10:37 | Outpatient (BNVA) | payer OTHER, SELFPAY | PROVIDERS: PCP Physician Assistant Medical; Visit Provider Physician Assistant Medical | DX: I10 Essential (primary) hypertension (principal); E87.1 Hypo-osmolality and hyponatremia | CPT/HCPCS: 96127 ==